=== PATIENT | female | born 1945 | race Hispanic/Latino ===

== ENCOUNTER 2022-01-28 10:32 | Emergency (ER) | payer MEDICARE ==
[2022-01-28] MEDS ORDERED: ACETAMINOPHEN 325 MG TAB PO ONE (11:03)
--- NOTE | 2022-01-28 11:04 | Emergency Department Report ---
ED General Adult HPI - General Chief complaint: Extremity Injury, Lower Stated complaint: PEDAL EDEMA Time Seen by Provider: 01/28/22 11:02 Source: patient, EMS ( EMS documentation not available at time of chart dictation ), RN notes reviewed Mode of arrival: Stretcher Limitations: Physical Limitation - History of Present Illness Initial comments: Primary CARE doctor: Alex piña This is a pleasant and cooperative 76-year-old female with a history of hypertension, and stroke, with residual left-sided deficits, who typically resides in a wheelchair, presenting to the ER with a complaint of bilateral lower extremity swelling for about 1 month. Denies additional complaints with the exception of dysuria. Specifically denies headache, neck pain, chest pain, abdominal pain, shortness of breath, nausea, vomiting, diarrhea, and bloody emesis. She does have tightness in her legs, as well as tightness in her abdominal wall. -: Gradual, month(s) (1) Location: left, right, lower extremity Severity scale (0 -10): 0 Consistency: constant Improves with: none Worsens with: none Associated Symptoms: denies other symptoms - Related Data Previous Rx's Medication Instructions Recorded Last Taken Type Acetaminophen [Non-Aspirin Extra 500 mg PO Q6HR PRN #30 tablet 01/28/22 Unknown Rx Strength] Nitrofurantoin Bradley/M-Cryst 100 mg PO Q12HR #14 capsule 01/28/22 Unknown Rx [Macrobid CAP] Allergies Allergy/AdvReac Type Severity Reaction Status Date / Time No Known Allergies Allergy Unverified 01/28/22 10:55 ED Review of Systems ROS: Stated complaint: PEDAL EDEMA Other details as noted in HPI Constitutional: denies: fever Eyes: denies: eye discharge ENT: denies: epistaxis Respiratory: denies: shortness of breath Cardiovascular: edema Gastrointestinal: denies: nausea, vomiting, hematemesis, melena, hematochezia Genitourinary: dysuria Musculoskeletal: denies: back pain Neurological: weakness (Chronic left-sided weakness) Hematological/Lymphatic: denies: easy bleeding ED Past Medical Hx - Past Medical History Hx Hypertension: Yes Hx CVA: Yes (left sided deficits) Hx Heart Attack/AMI: Yes Hx Diabetes: Yes - Medications Home Medications: Home Medications Medication Instructions Recorded Confirmed Last Taken Type Acetaminophen [Non-Aspirin Extra 500 mg PO Q6HR PRN #30 tablet 01/28/22 Unknown Rx Strength] Nitrofurantoin Bradley/M-Cryst 100 mg PO Q12HR #14 capsule 01/28/22 Unknown Rx [Macrobid CAP] ED Physical Exam - General Limitations: Physical Limitation General appearance: alert, in no apparent distress - Head Head exam: Present: atraumatic, normocephalic - Eye Eye exam: Present: normal appearance, EOMI. Absent: nystagmus - ENT ENT exam: Present: normal exam, normal orophraynx, mucous membranes moist, normal external ear exam - Neck Neck exam: Present: normal inspection, full ROM. Absent: tenderness, men ingismus - Respiratory Respiratory exam: Present: normal lung sounds bilaterally. Absent: respiratory distress, wheezes, rales, rhonchi, stridor, decreased breath sounds - Cardiovascular Cardiovascular Exam: Present: regular rate, normal rhythm, normal heart sounds. Absent: bradycardia, tachycardia, irregular rhythm, systolic murmur, diastolic murmur, rubs, gallop - GI/Abdominal GI/Abdominal exam: Present: soft. Absent: distended, tenderness, guarding, rebound, rigid, pulsatile mass - Extremities Exam Extremities exam: Present: pedal edema (2-3+ edema in the bilateral lower extremities), other (2+ pulses noted in the bilateral upper and lower extremities. There is no palpable cord. negative Homans sign. Muscular compartments are soft. The pelvis is stable.). Absent: normal inspection, calf tenderness - Back Exam Back exam: Present: normal inspection. Absent: tenderness, CVA tenderness (R), CVA tenderness (L), paraspinal tenderness, vertebral tenderness - Neurological Exam Neurological exam: Present: alert, motor sensory deficit (There is chronic 4 out of 5 strength left arm and left leg as per the patient), other (There is no facial droop. The tongue is midline. EOMI. 5 out of 5 strength right arm and right leg. 4 out of 5 strength left arm and left leg. Sensation is intact to light touch in the bilateral upper and lower extremities) - Psychiatric Psychiatric exam: Present: normal affect, normal mood - Skin Skin exam: Present: warm, dry, intact, normal color. Absent: rash ED Course Vital Signs 01/28/22 01/28/22 10:54 13:13 Temperature 98.7 F Pulse Rate 88 90 Respiratory 18 20 Rate Blood Pressure 165/62 167/75 [Right] O2 Sat by Pulse 98 96 Oximetry - Reevaluation(s) Reevaluation #1: 01/28/22 11:52 Differential diagnosis, including but not limited to: Dependent edema, DVT, renal insufficiency, hepatic insufficiency, hypoalbuminemia Assessment and plan: 76-year-old female, who was afebrile, with reassuring vital signs, not currently tachycardic, tachypneic or hypoxic, who denies physical pain at this time, essentially presenting with bilateral lower extremity swelling. Obtain x-ray of the chest, lower extremity DVT study. Obtain appropriate laboratory studies. Reassess. Obtain urinalysis. Discussed this with the patient. She is agreeable to the plan of care Reevaluation #2: 01/28/22 11:52 Renal function hepatic function abdomen within normal limits. WBC of 17 reviewed and appreciated. Doubt sepsis clinically at this time. Do not suspect acute invasive bacterial illness at this time. Muscular compartments are soft. Chest x-ray is pending. Urinalysis is pending 01/28/22 13:21 Went back to evaluate the patient. Chest x-ray clear. Urinalysis pending. Discussed test results with the patient. Reached out to [facility] physician, Dr. Hdz Discussed the patient's history, physical, laboratory studies and imaging studies and clinical impression. She will arrange outpatient follow-up. The patient states she is now having right lower quadrant pain and lower back pain. She states the pain has been there for "a long time", but reports that it is gotten worse. Given leukocytosis of 17,000, check CT scan abdomen pelvis. 01/28/22 14:49 ua consistent w cystitis patient reports appendectomy in this past she also reports multiple abdominal surgeries in the past ct a/p with no emergent findings multiple chronic findings noted called up [facility] physician and discussed patients presentation, labs and impression [place] will arrange outpatient follow up d/c with macrobic for cystitis and prn tylenol for pain compression stockings outpatient for lower extremity edema ED Medical Decision Making - Lab Data Result diagrams: 01/28/22 11:06 01/28/22 11:06 Vital Signs 01/28/22 10:54 Temperature 98.7 F Pulse Rate 88 Respiratory 18 Rate Blood Pressure 165/62 [Right] O2 Sat by Pulse 98 Oximetry Lab Results 01/28/22 01/28/22 Range/Units 11:06 11:06 WBC 17.1 H (4.5-11.0) K/mm3 RBC 3.84 (3.65-5.03) M/mm3 Hgb 11.5 (10.1-14.3) gm/dl Hct 34.7 (30.3-42.9) % MCV 90 (79-97) fl MCH 30 (28-32) pg MCHC 33 (30-34) % RDW 15.8 H (13.2-15.2) % Plt Count 184 (140-440) K/mm3 Sodium 132 L (137-145) mmol/L Potassium 4.3 (3.6-5.0) mmol/L Chloride 93.3 L (98-107) mmol/L Carbon Dioxide 27 (22-30) mmol/L Anion Gap 16 mmol/L BUN 13 (7-17) mg/dL Creatinine 0.8 (0.6-1.2) mg/dL Estimated GFR > 60 ml/min BUN/Creatinine Ratio 16 % Glucose 244 H (65-100) mg/dL Calcium 10.0 (8.4-10.2) mg/dL Magnesium 1.70 (1.7-2.3) mg/dL Total Bilirubin 0.50 (0.1-1.2) mg/dL AST 16 (5-40) units/L ALT 20 (7-56) units/L Alkaline Phosphatase 178 H (35-129) units/L Total Creatine Kinase 31 (30-135) units/L NT-Pro-B Natriuret Pep 516.2 (0-900) pg/mL Total Protein 6.2 L (6.3-8.2) g/dL Albumin 4.3 (3.9-5) g/dL Albumin/Globulin Ratio 2.3 % - EKG Data -: EKG Interpreted by [facility] EKG shows normal: sinus rhythm Rate: normal - EKG Data When compared to previous EKG there are: previous EKG unavailable 01/28/22 12:17 The EKG is interpreted at 11: 52 Sinus rhythm, rate 88 bpm. Normal axis, normal P wave axis, QTC 4 3 3 ms. Q waves in the inferior leads. Borderline left ventricular hypertrophy. Motion artifact. Not a STEMI - Radiology Data Radiology results: pending, report reviewed, image reviewed DUPLEX DOPPLER LOWER EXTREMITY VEINS, BILATERAL INDICATION: Bilateral lower extremity swelling. TECHNIQUE: Duplex doppler imaging was performed through the veins of both lower extremities using venous compression and other maneuvers. COMPARISON: No relevant prior imaging study available. FINDINGS: Right Common femoral vein: Negative. Right Superficial femoral vein: Negative. Right Popliteal vein: Negative. Right Calf veins: Negative. Left Common femoral vein: Negative. Left Superficial femoral vein: Negative. Left Popliteal vein: Negative. Left Calf veins: Negative. Additional findings: None.. IMPRESSION: 1. No sonographic evidence for DVT in either lower extremity. Signer Name: Scott Winter MD Signed: 01/28/2022 10:53 AM Workstation Name: [id number] XR chest 1V ap INDICATION / CLINICAL INFORMATION: Lower extremity edema COMPARISON: None available. FINDINGS: SUPPORT DEVICES: None. HEART / MEDIASTINUM: No significant abnormality. LUNGS / PLEURA: Lungs are clear. Costophrenic sulci are sharp. No pneumothorax. ADDITIONAL FINDINGS: No s ignificant additional findings. IMPRESSION: 1. No acute findings. Signer Name: Praveen Grullon MD Signed: 01/28/2022 11:32 AM Workstation Name: [id number] CT ABDOMEN AND PELVIS WITH CONTRAST INDICATION / CLINICAL INFORMATION: Lower abdominal pain and back pain OMNI 300 100 ML. TECHNIQUE: Axial CT images were obtained through the abdomen and pelvis after 100 cc of Omnipaque [address] scans at this location are performed using CT dose reduction for ALARA by means of automated exposure control. COMPARISON: None available. FINDINGS: LOWER CHEST: Atherosclerotic calcificati ons are noted in the thoracic aorta and coronary arteries. There are valvular calcifications around the aortic valve. LIVER: Surface of the liver is mildly nodular raising possibility of cirrhosis. GALLBLADDER: There is minimal high density material in the neck of the gallbladder could represent sludge or small stones. BILE DUCTS: No significant abnormality. PANCREAS: There is slight dilatation of the pancreatic duct. No mass lesion is seen. SPLEEN: Enlarged measuring 14.6 cm in length. ADRENALS: No significant abnormality. RIGHT KIDNEY / URETER: No significant abnormality. LEFT KIDNEY / URETER: No significant abnormality. STOMACH / SMALL BOWEL: There is a fluid-filled routine device around the distal stomach which contains a metallic wire. The there is no tubing connected to this. I am uncertain of the exact etiology of this other than this is a man made structure presumably surgically placed. Correlation with patient's surgical history will be necessary to determine the exact nature of this device. COLON: There is a moderate to large amount stool in the colon raising the possibility of constipation. APPENDIX: Not visualized PERITONEUM: No free fluid. No free air. No fluid collection. LYMPH NODES: No significant adenopathy. AORTA / ARTERIES: Severe atherosclerotic calcification without acute abnormality. IVC / VEINS: No significant abnormality. URINARY BLADDER: No significant abnormality. REPRODUCTIVE ORGANS: No significant abnormality. ADDITIONAL FINDINGS: None. SKELETAL SYSTEM: No acute abnormality. Degenerative changes are noted in the imaged spine. IMPRESSION: 1. There is no obstruction, inflammation, or free air. There are no abnormal collections. There is a small amount of high density material in the gallbladder which could represent small stones or sludge. 2. The surface the liver is nodular raising possibility of cirrhosis. The spleen is enlarged measuring 14.6 cm in length. 3. There is a device around the distal stomach which is of uncertain etiology. Correlation with patient's prior surgical history is recommended 4. There is atherosclerotic disease. Signer Name: Nasir Camp MD Signed: 01/28/2022 1:42 PM Workstation Name: [id number] Critical care attestation.: If time is entered above; I have spent that time in minutes in the direct care of this critically ill patient, excluding procedure time. ED Disposition Clinical Impression: Swelling of lower extremity, Lower abdominal pain, Cystitis, Abnormal computed tomography of abdomen and pelvis Disposition: 01 HOME / SELF CARE / HOMELESS Is pt being admited?: No Does the pt Need Aspirin: No Condition: Good Additional Instructions: Please continue current outpatient medications. Do not take metformin medication for the next 2 days if patient takes this medication. Urinalysis sug gested urinary tract infection. Patient received ceftriaxone here in the emergency room. Patient to be discharged with Tylenol for pain, and Macrobid is an antibiotic. Cultures were sent today, results to be available in the next 3 to 5 days. Please have your primary care doctor contact the medical records department to obtain culture results. CT scan of the abdomen pelvis today demonstrated no acute or emergent findings that would require emergent intervention. The number of incidental presumably chronic findings were noted, which will require monitoring and follow-up with your primary care doctor. Please have your primary care doctor contact the medical records department, to obtain copies of laboratory studies and radiology studies, to follow-up on nonemergent incidental abnormal findings. Weightbearing as tolerated, ambulation as tolerated, recommend that patient purchase [id number] compression stockings for lower extremity swelling. Recommend follow-up with your outpatient primary care doctor within the next week. Please return to the emergency room right away with new pain, worsened pain, migration of pain, projectile vomiting, change in mental status, confusion, inability tolerate liquid feeds, new, worsened or different symptoms not present on the initial emergency room evaluation Referrals: OLIVIA FAY [Other] - 3-5 Days
[2022-01-28 11:18] LABS: Hematocrit 34.7 % (30.3-42.9); Hemoglobin 11.5 gm/dl (10.1-14.3); Mean Corpuscular HGB Conc 33 % (30-34); Mean Corpuscular Volume 90 fl (79-97); Platelet Count 184 K/mm3 (140-440); Red Blood Count 3.84 M/mm3 (3.65-5.03); Red Cell Distribution Width 15.8 % (13.2-15.2)
[2022-01-28 11:43] LABS: Alanine Aminotransferase 20 units/L (7-56); Albumin 4.3 g/dL (3.9-5); BUN/Creatinine Ratio 16; Blood Urea Nitrogen 13 mg/dL (7-17); Hemolysis Index 8
--- NOTE | 2022-01-28 11:58 | Vascular Lab Report ---
DUPLEX DOPPLER LOWER EXTREMITY VEINS, BILATERAL INDICATION: Bilateral lower extremity swelling. TECHNIQUE: Duplex doppler imaging was performed through the veins of both lower extremities using venous deepak leonarda and other maneuvers. COMPARISON: No relevant prior imaging study available. FINDINGS: Right Common femoral vein: Negative. Right Superficial femoral vein: Negative. Right Popliteal vein: Negative. Right Calf veins: Negative. Left Common femoral vein: Negative. Left Superficial femoral vein: Negative. Left Popliteal vein: Negative. Left Calf veins: Negative. Additional findings: None.. IMPRESSION: 1. No sonographic evidence for DVT in either lower extremity. Signer Name: Scott Winter MD Signed: 01/28/2022 11:53 AM Workstation Name: [email or web address]
[2022-01-28 12:16] LABS: INR 1.03 (0.87-1.13)
--- NOTE | 2022-01-28 12:37 | XRay Report ---
XR chest 1V ap INDICATION / CLINICAL INFORMATION: Lower extremity edema COMPARISON: None available. FINDINGS: SUPPORT DEVICES: None. HEART / MEDIASTINUM: No significant abnormality. LUNGS / PLEURA: Lungs are clear. Costophrenic sulci are sharp. No pneumothorax. ADDITIONAL FINDINGS: No significant additional findings. IMPRESSION: 1. No acute findings. Signer Name: Praveen Grullon MD Signed: 01/28/2022 12:32 PM Workstation Name: [id number]
[2022-01-28 13:20] LABS: Bilirubin,Urine NEG (Negative); Blood,Urine SM (Negative); Color,Urine Yellow (Yellow); Urobilinogen,Urine < 2.0 mg/dL (<2.0)
[2022-01-28 13:37] LABS: WBC,Urine > 182.0 /HPF (0.0-6.0)
[2022-01-28] MEDS ORDERED: cefTRIAXone/NS 1 GM/50 ML 1 GM/50 ML BAG IV ONE (13:43)
--- NOTE | 2022-01-28 14:47 | Cat Scan Report ---
CT ABDOMEN AND PELVIS WITH CONTRAST INDICATION / CLINICAL INFORMATION: Lower abdominal pain and back pain OMNI 300 100 ML. TECHNIQUE: Axial CT images were obtained through the abdomen and pelvis after 100 cc of Omnipaque [address] scans at this location are performed using CT dose reduction for ALARA by means of automated exposure control. COMPARISON: None available. FINDINGS: LOWER CHEST: Atherosclerotic calcifications are noted in the thoracic aorta and coronary arteries. Th ere are valvular calcifications around the aortic valve. LIVER: Surface of the liver is mildly nodular raising possibility of cirrhosis. GALLBLADDER: There is minimal high density material in the neck of the gallbladder could represent sl udge or small stones. BILE DUCTS: No significant abnormality. PANCREAS: There is slight dilatation of the pancreatic duct. No mass lesion is seen. SPLEEN: Enlarged measuring 14.6 cm in length. ADRENALS: No significant abnormality. RIGHT KIDNEY / URETER: No significant abnormality. LEFT KIDNEY / URETER: No significant abnormality. STOMACH / SMALL BOWEL: There is a fluid-filled routine device around the distal stomach which contain s a metallic wire. The there is no tubing connected to this. I am uncertain of the exact etiology of this other than this is a man made structure presumably surgically placed. Correlation with patient's surgical history will be necessary to determine the exact nature of this device. COLON: There is a moderate to large amount stool in the colon raising the possibility of constipation . APPENDIX: Not visualized PERITONEUM: No free fluid. No free air. No fluid collection. LYMPH NODES: No significant adenopathy. AORTA / ARTERIES: Severe atherosclerotic calcification without acute abnormality. IVC / VEINS: No significant abnormality. URINARY BLADDER: No significant abnormality. REPRODUCTIVE ORGANS: No significant abnormality. ADDITIONAL FINDINGS: None. SKELETAL SYSTEM: No acute abnormality. Degenerative changes are noted in the imaged spine. IMPRESSION: 1. There is no obstruction, inflammation, or free air. There are no abnormal collections. There is a small amount of high density material in the gallbladder which could represent small stones or sludge . 2. The surface the liver is nodular raising possibility of cirrhosis. The spleen is enlarged measurin g 14.6 cm in length. 3. There is a device around the distal stomach which is of uncertain etiology. Correlation with patie nt's prior surgical history is recommended 4. There is atherosclerotic disease. Signer Name: Nasir Camp MD Signed: 01/28/2022 2:42 PM Workstation Name: [id number]
--- NOTE | 2022-01-28 17:24 | Electrocardiograph Report ---
[facility] Test Date: 2022-01-28 Test Time: 11:52:02 Pat Name: MADINA WAGGONER Department: Room: Gender: F Supervisor [employer]: MELVIN : 1945 Requested By: PEG ROD Order Number: [id number] Reading MD: Mary Burton Measurements Intervals [place] Rate: 88 P: 64 CT: 152 QRS: 38 QRSD: 106 T: 105 QT: 357 QTc: 433 Interpretive Statements Sinus rhythm Inferior infarct, old Nonspecific T abnormalities, lateral leads No previous ECG available for comparison Electronically Signed On 01-28-2022 17:23:41 EDT by Mary Burton
[2022-01-28 21:26] VITALS: BP 127/79
== END 2022-01-28 22:40 | disposition home or self-care (01) ==
LOC: ED 10:32
DX: M79.89 Other specified soft tissue disorders (principal); R10.30 Lower abdominal pain, unspecified; N30.90 Cystitis, unspecified without hematuria; R93.5 Abnormal findings on diagnostic imaging of other abdominal regions, including retroperitoneum
CPT/HCPCS: 36415; 71045; 74177; 80053; 81001; 82550; 83735; 83880; 85027; 85610; 87086; 93005; 93970; 96365; 99285; J0696; Q9967; 99283